=== PATIENT | male | born 1985 | race Caucasian/White ===

== ENCOUNTER 2017-11-12 16:56 | Emergency (ER) | payer SELFPAY ==
[~2017-11-12] VITALS: Ht 157.5 cm; Wt 79.0 kg
[~2017-11-12 16:56] MED LIST: MOTRIN; NAPROSYN
[2017-11-12 18:22] VITALS: BP 134/88
== END 2017-11-12 22:15 | disposition left against medical advice (07) ==
LOC: ER 16:56
DX: Z53.21 Procedure and treatment not carried out due to patient leaving prior to being seen by health care provider (principal)